=== PATIENT | male | born 1995 | race Caucasian/White ===

== ENCOUNTER 2023-06-28 11:15 | Emergency (ER) | payer BC, SELFPAY ==
[2023-06-28 11:21] VITALS: BP 117/84
[2023-06-28 12:16] LABS: % Basophils 0.3 % (0-2); % Immature Granulocytes 0.3 % (0-0.5); % Lymphocytes 4.1 % (20.5-51.1); % Monocytes 4.9 % (1.7-9.3); % Neutrophils 90.4 % (42.2-75.2); Absolute Lymphocytes 0.3 10^3/uL (1.2-3.4); Absolute Monocytes 0.4 10^3/uL (0.1-0.6); Absolute Neutrophils 6.6 10^3/uL (1.4-6.5); Hematocrit 42.9 % (39.0-52.0); Hemoglobin 15.7 g/dL (13.0-18.0); Mean Corp Hgb Conc. 36.6 g/dL (33.0-37.0); Mean Corpuscular Hgb 32.4 pg (27.0-31.0); Mean Corpuscular Volume 88.5 fL (80.0-94.0); Mean Platelet Volume 10.3 fL (7.4-10.4); Nucleated Red Blood Cells % 0 % (-); Platelet Count 269 10^3/uL (130-400); Red Blood Cell Count 4.85 10^6/uL (4.70-6.10); Red Cell Dist. Width 11.9 % (11.5-14.5); White Blood Cell Count 7.3 10^3/uL (4.8-10.8)
[2023-06-28 12:34] LABS: ALT (SGPT) 21 U/L (0-50); AST (SGOT) 27 U/L (17-59); Albumin 4.9 g/dl (3.5-5.0); Alkaline Phosphatase 72 U/L (38-126); Blood Urea Nitrogen 15 mg/dl (9-20); Calcium 9.5 mg/dl (8.4-10.2); Carbon Dioxide 24 mmol/L (22-30); Chloride 105 mmol/L (98-107); Glucose 109 mg/dl (70-99); Potassium 4.2 mmol/L (3.5-5.1); Sodium 137 mmol/L (135-145); Total Bilirubin 1.6 mg/dl (0.2-1.3); Total Protein 7.5 g/dl (6.3-8.2); eGFR > 60.00
[2023-06-28 13:03] LABS: Lipase 740 U/L (23-300)
--- NOTE | 2023-06-28 13:11 | ED.GENMED ---
History of Present Illness
General
Chief Complaint: Abdominal Pain
Source: patient
Exam Limitations: none
Time Seen by Provider: 06/28/23 12:29
Travel History
Have you had any contact with someone who has COVID-19?: No
Do you have any symptoms of coronavirus? Fever > 100 degrees, chills, cough, shortness of breath, sore throat, loss of taste or smell, muscle aches, or headache?: No
History of Present Illness
History of Present Illness:
27-year-old male otherwise healthy presents with onset of abdominal pain nausea vomiting diarrhea last evening. He notes diffuse abdominal pain. He denies any blood in the vomit or stool. No measurable fever. He does not take any medications
regularly however he does have a medical card for marijuana. He smoked marijuana last evening. Denies regular alcohol use. Denies NSAID use. No known sick contacts. No other complaints at this time.
Phy Exam
Physical Exam
Physical Exam:
General: Uncomfortable appearing male no acute respiratory distress
HEENT: Normocephalic atraumatic neck is supple
Heart: Regular rate and rhythm no murmurs
Lungs: Clear to auscultation bilaterally no wheezing
Abdomen: Diffuse tenderness mild guarding no rebound tenderness normal bowel sounds nondistended
Extremities: No cyanosis or edema
Course
Orders/Labs/Results
Orders:
Orders
06/28/23 11:56
CMP [Comprehensive Metabolic Panel] Urgent
Complete Blood Count/With Diff Urgent
Lipase Urgent
Comment: ADD ON
06/28/23 12:44
Add On- LAB Urgent
Tests Added?: lipase
Norovirus by PCR Urgent
JANNET Source: Feces/Stool
Specimen Description:
STOOL [C difficile Antigen & Toxins] Urgent
JANNET Source: Feces/Stool
Specimen Description:
Stool Culture Urgent
JANNET Source: Feces/Stool
Specimen Description:
0.9% Sodium Chloride 1000 ml [Nss] 1,000 ml IV BOLUS
Famotidine [Pepcid] 20 mg IV NOW STA
Ketorolac [Toradol] 15 mg IV NOW STA
Ondansetron Injectable [Zofran] 4 mg IV NOW STA
06/28/23 12:45
CT Abd/pelvis W Iv Cont Urgent
Comment:
Reason For Exam: abdominal pain, vomiting
Abnormal Lab Results
06/28/23
11:56
MCH 32.4 H pg
(27.0-31.0)
Absolute Neuts (auto) 6.6 H 10^3/uL
(1.4-6.5)
Absolute Lymphs (auto) 0.3 L 10^3/uL
(1.2-3.4)
Neutrophils % 90.4 H %
(42.2-75.2)
Lymphocytes % 4.1 L %
(20.5-51.1)
Glucose 109 H mg/dl
(70-99)
Total Bilirubin 1.6 H mg/dl
(0.2-1.3)
Lipase 740 H U/L
(23-300)
06/28/23 11:56
06/28/23 11:56
Vital Signs
Initial and Last Documented VS:
Initial Vital Signs
Temp Pulse Resp BP Pulse Ox
98.4 F 88 18 117/84 98
06/28/23 11:21 06/28/23 11:21 06/28/23 11:21 06/28/23 11:21 06/28/23 11:21
Last Documented Vital Signs
Temp Pulse Resp BP Pulse Ox
98.4 F 67 14 129/53 99
06/28/23 11:21 06/28/23 15:00 06/28/23 15:00 06/28/23 15:10 06/28/23 15:00
MDM/Problems Addressed
Differential Diagnosis Includes:
Abdominal pain with nausea vomiting and diarrhea. Differential could include gastroenteritis versus bowel obstruction versus colitis
Will check labs. Patient quite tender on exam. Will image with CT scan however unable to tolerate oral contrast secondary to nausea and vomiting. Fluids ordered Toradol Zofran ordered. If patient provide stool sample will collect
*Critical Care Note
Total Time (30-74mins, 75-104mins- exclusive of procedures): Not Applicable
Update Note
Update Note:
CT abd/pelvis no acute findings. Patient feeling better after hydration and pain medicine and Zofran. Lipase slightly elevated just over 700. Liver functions are otherwise clear. Patient does not drink alcohol. Suspect possibly related to
underlying viral illness. Recommended clear liquids for now. Stable for discharge with follow-up.
ED Attending Note
-
Portions of this chart may have been created with voice recognition software.� Occasional wrong word or��sound alike� substitutions may have occurred due to the inherent limitations of voice recognition software.
Discharge Plan
Departure
Patient Disposition: Home (Routine Discharge)
Date of Disposition: 06/28/23
Time of Disposition: 15:57
Patient with high blood pressure during this ER visit?: No
Discharge Problem:
Nausea & vomiting
Instructions: Abdominal Pain
Referrals:
Venu Coronado MD [Family Provider] -
Activity Restrictions/Additional Instructions:
Start with clear liquid diet. Slowly advance to bland diet as tolerated. Return for worsening symptoms otherwise follow-up with family doctor
Interventions
Interventions:
*Risk Screen - Suicide Last Done: 06/28/23 13:19
*General Assessment Last Done: 06/28/23 13:19
*Neglect/Abuse Screening Last Done: 06/28/23 13:19
ED- Fall Risk Assessment Last Done: 06/28/23 13:19
*ED COVID-19 Vaccine History Last Done: 06/28/23 13:19
ZQ-Unicnq-Nrctprwgwu Assessment Last Done: 06/28/23 13:19
[2023-06-28 13:19] VITALS: BMI 24.2
[2023-06-28] MEDS: NSS 1000 IV (13:20)
[2023-06-28] MEDS: TORADOL 15 MG IV (13:28)
[2023-06-28] MEDS: ZOFRAN 4 MG IV (13:28)
[2023-06-28] MEDS: PEPCID 20 MG IV (13:29)
[2023-06-28 13:30] VITALS: BP 125/79
[2023-06-28 14:00] VITALS: BP 122/62
--- NOTE | 2023-06-28 14:57 | EDRN ---
Liz GOMEZ w/ cardiology in room w/ pt.
[2023-06-28 15:00] VITALS: BP 95/50
[2023-06-28 15:10] VITALS: BP 129/53
--- NOTE | 2023-06-28 15:17 | EDRN ---
Chon GOMEZ in to speak w/ pt
[2023-06-28 16:00] VITALS: BP 116/67
== END 2023-06-28 16:25 | disposition home or self-care (01) ==
LOC: EMR 11:15
PROVIDERS: EMERGENCY PHYSICIAN Emergency Medicine; FAMILY PHYSICIAN Family Medicine
DX: R11.2 Nausea with vomiting, unspecified (principal)
CPT/HCPCS: 99284; 96374; 96375; 96361; 74177; 80053; 83690; 85025; Q9967